=== PATIENT | male | born 1970 | race Two or more races ===

== ENCOUNTER 2016-09-22 09:39 | Emergency (ER) | payer OTHER ==
[~2016-09-22] VITALS: Ht 165.1 cm; Wt 63.5 kg
[2016-09-22 09:53] VITALS: BP 146/90
[2016-09-22] MEDS: NEOMYCIN-BACITRACIN-POLYM UNITDOSE PKG TOP OINT TOP ONE (11:15)
== END 2016-09-22 11:42 | disposition home or self-care (01) ==
LOC: ER 09:39
DX: S01.83XA Puncture wound without foreign body of other part of head, initial encounter (principal); X50.9XXA Other and unspecified overexertion or strenuous movements or postures, initial encounter; Y93.89 Activity, other specified; Y92.89 Other specified places as the place of occurrence of the external cause; Y99.0 Civilian activity done for income or pay